=== PATIENT | male | born 1970 | race Caucasian/White ===

== ENCOUNTER 2018-11-22 06:44 | Emergency (ER) | payer BC ==
[~2018-11-22] VITALS: Ht 170.2 cm; Wt 96.0 kg
[2018-11-22 06:50] VITALS: BP 149/91
[2018-11-22] MEDS ORDERED: NAPROXEN 250MG TABLET PO ONE (07:45)
== END 2018-11-22 09:29 | disposition home or self-care (01) ==
LOC: ER 06:44
DX: M79.671 Pain in right foot (principal); R03.0 Elevated blood-pressure reading, without diagnosis of hypertension
CPT/HCPCS: 73630; 99283